=== PATIENT | male | born 1935 | race Caucasian/White ===

== ENCOUNTER 2021-07-11 17:06 | Outpatient (CLI) | payer MEDICARE, OTHER ==
[2021-07-11 20:17] LABS: INR 2.2 (0.8-1.2); PT - PROTHROMBIN TIME 23.9 secs (9.9-12.6)
== END 2021-07-11 17:07 | disposition home or self-care (01) ==
LOC: LAB.S 17:06
PROVIDERS: ATTEND Internal Medicine Cardiovascular Disease
DX: I48.20 Chronic atrial fibrillation, unspecified (principal); Z79.01 Long term (current) use of anticoagulants
CPT/HCPCS: 36415; 85610

== ENCOUNTER 2021-08-05 18:43 | Outpatient (CLI) | payer MEDICARE, OTHER ==
[2021-08-05 20:16] LABS: INR 3.3 (0.8-1.2); PT - PROTHROMBIN TIME 36.7 secs (9.9-12.6)
== END 2021-08-05 18:44 | disposition home or self-care (01) ==
LOC: LAB.S 18:43
PROVIDERS: ATTEND Internal Medicine Cardiovascular Disease
DX: I48.20 Chronic atrial fibrillation, unspecified (principal); Z79.01 Long term (current) use of anticoagulants
CPT/HCPCS: 36415; 85610

== ENCOUNTER 2021-08-27 10:34 | Outpatient (CLI) | payer MEDICARE, OTHER ==
[2021-08-27 14:28] LABS: INR 2.9 (0.8-1.2); PT - PROTHROMBIN TIME 32.6 secs (9.9-12.6)
== END 2021-08-27 10:35 | disposition home or self-care (01) ==
LOC: LAB.S 10:34
PROVIDERS: ATTEND Internal Medicine Cardiovascular Disease
DX: I48.20 Chronic atrial fibrillation, unspecified (principal); Z79.01 Long term (current) use of anticoagulants
CPT/HCPCS: 36415; 85610

== ENCOUNTER 2023-09-21 08:07 | Outpatient (CLI) | payer MEDICARE, OTHER ==
[2023-09-21 15:42] LABS: INR 2.4 (0.8-1.2); PT - PROTHROMBIN TIME 24.9 secs (9.9-12.6)
== END 2023-09-21 08:08 | disposition home or self-care (01) ==
LOC: LAB.S 08:07
PROVIDERS: ATTEND Internal Medicine Cardiovascular Disease
DX: I48.20 Chronic atrial fibrillation, unspecified (principal)
CPT/HCPCS: 36415; 85610

== ENCOUNTER 2023-10-27 12:54 | Outpatient (CLI) | payer MEDICARE, OTHER ==
[2023-10-27 16:56] LABS: INR 2.9 (0.8-1.2); PT - PROTHROMBIN TIME 29.1 secs (9.9-12.6)
== END 2023-10-27 12:55 | disposition home or self-care (01) ==
LOC: LAB.S 12:54
PROVIDERS: ATTEND Internal Medicine Cardiovascular Disease
DX: I48.20 Chronic atrial fibrillation, unspecified (principal)
CPT/HCPCS: 36415; 85610